=== PATIENT | male | born 1990 | race Two or more races ===

== ENCOUNTER 2017-07-05 19:44 | Emergency (ER) | payer MEDICAID, OTHER ==
[~2017-07-05] VITALS: Ht 185550.7 cm; Wt 85.0 kg
[~2017-07-05 19:44] MED LIST: NO HOME MEDS
[2017-07-05] MEDS ORDERED: normal saline 1000ML IV soln IVB ONE (20:15)
[2017-07-05 20:50] LABS: BASOPHILS % (AUTO) 0.3 % (0-1); EOSINOPHILS # (AUTO) 0.2 X10'3 (0-0.9); EOSINOPHILS % (AUTO) 1.7 % (0-6); HEMOGLOBIN 16.3 g/dl (14.0-17.9); LYMPHOCYTES # (AUTO) 3.1 X10'3 (1.1-4.8); LYMPHOCYTES % (AUTO) 29.8 % (21-51); MEAN CORPUSCULAR HEMOGLOBIN 31.9 PG (27.0-31.0); MEAN CORPUSCULAR HGB CONC 33.9 % (33.0-36.5); MEAN CORPUSCULAR VOLUME 94.1 FL (78-98); MEAN PLATELET VOLUME 7.2 FL (7.4-10.4); MONOCYTES # (AUTO) 0.7 X10'3 (0-0.9); MONOCYTES % (AUTO) 6.6 % (2-12); NEUTROPHILS # (AUTO) 6.5 X10'3 (1.8-7.7); NEUTROPHILS % (AUTO) 61.6 % (42-75); PLATELET COUNT 322 X10'3 (140-440); RED CELL DISTRIBUTION WIDTH 12.6 % (11.5-14.5); WHITE BLOOD COUNT 10.5 X10'3 (4.5-11.0)
[2017-07-05 21:06] LABS: ALANINE AMINOTRANSFERASE 42 U/L (12-78); ALBUMIN 4.8 G/DL (3.4-5.0); ALBUMIN/GLOBULIN RATIO 1.3 (1.1-1.5); ALKALINE PHOSPHATASE 53 IU/L (46-116); ANION GAP 15 (8-16); ASPARTATE AMINO TRANSFERASE 33 U/L (10-37); BILIRUBIN,TOTAL 0.6 MG/DL (0.1-1.0); BLOOD UREA NITROGEN 9 MG/DL (7-18); BUN/CREATININE RATIO 6.6 (5.4-32.0); CALCIUM 9.1 MG/DL (8.5-10.1); CHLORIDE 106 MMOL/L (99-107); CREATININE 1.36 MG/DL (0.60-1.10); GLUCOSE 104 MG/DL (70-104); POTASSIUM 3.4 MMOL/L (3.5-5.1); SODIUM 146 MMOL/L (135-145); TOTAL CARBON DIOXIDE 25.4 MMOL/L (24-32); TOTAL PROTEIN 8.5 G/DL (6.4-8.2); eGFR 62 ML/MIN
[2017-07-05 21:14] LABS: ETHANOL 0.252 GM/DL (0.0-0.010)
[2017-07-05 21:38] LABS: CLARITY,URINE SLIGHTLY CLOUDY (Clear); COLOR,URINE YELLOW (Yellow); GLUCOSE, URINE NEGATIVE (Neg); KETONES,URINE NEGATIVE (Neg); LEUKOCYTE ESTERASE ,URINE NEGATIVE (Neg); NITRITES, URINE NEGATIVE (Neg); OCCULT BLOOD,URINE NEGATIVE (Neg); PROTEIN,URINE 30 mg/dl (Neg); UROBILINOGEN,URINE 0.2 E.U/dL (0.2-1.0)
[2017-07-05 21:41] LABS: URINE AMPHETAMINE SCREEN NEGATIVE (Neg); URINE BARBITUATE SCREEN NEGATIVE (Neg); URINE BENZODIAZEPINES SCREEN NEGATIVE (Neg); URINE CANNABINOID SCREEN POSITIVE (Neg); URINE COCAINE SCREEN POSITIVE (Neg); URINE METHADONE SCREEN NEGATIVE (Neg); URINE OPIATE SCREEN NEGATIVE (Neg); URINE PHENCYCLIDINE SCREEN NEGATIVE (Neg)
[2017-07-05 21:54] LABS: UA COLLECTION TYPE CLN CATCH MIDSTREAM
[2017-07-05 21:56] LABS: BACTERIA,URINE FEW /HPF (Neg); MUCUS STRANDS FEW /LPF (Neg); RBC,URINE 0-2 /HPF (0-2); SQUAMOUS EPITHELIAL CELL,UR FEW /LPF (FEW); WBC,URINE 0-4 /HPF (0-4)
[2017-07-05] MEDS ORDERED: LORazepam 2 mg/ml vial IM ONE (22:10)
[2017-07-05] MEDS ORDERED: diphenhydrAMINE 50 mg/ml inj IM ONE (22:40)
[2017-07-05] MEDS ORDERED: haloperidol lactate 5mg/ml inj IM ONE (22:40)
[2017-07-06] MEDS ORDERED: nicotine 21mg patch - 24 hr TD ONE (16:05)
[2017-07-06] MEDS ORDERED: LORazepam 1 MG tablet PO STA (16:18)
[2017-07-06] MEDS ORDERED: diphenhydrAMINE 25mg capsule PO ONE (16:20)
[2017-07-06] MEDS ORDERED: OLANZapine 2.5MG tablet PO PRN (18:00)
[2017-07-06] MEDS ORDERED: traZODone 50mg tablet PO PRN (18:00)
[2017-07-06] MEDS: OLANZapine 5mg rapidly disint. tablet PO SCH (20:36)
[2017-07-07] MEDS: multivitamins, therapeutics tablet PO SCH (08:12)
[2017-07-07] MEDS: thiamine 100mg tablet PO SCH (08:12)
[2017-07-07] MEDS: folic acid 1mg tablet PO SCH (08:12)
[2017-07-07] MEDS: nicotine 21mg patch - 24 hr TD SCH (12:02)
[2017-07-07] MEDS: LORazepam 1 MG tablet PO PRN ×2 (16:59→23:25)
[2017-07-07] MEDS: OLANZapine 5mg rapidly disint. tablet PO SCH (20:32)
[2017-07-07] MEDS: traZODone 50mg tablet PO PRN (20:32)
[2017-07-08] MEDS: nicotine 21mg patch - 24 hr TD SCH (08:07)
[2017-07-08] MEDS: multivitamins, therapeutics tablet PO SCH (08:07)
[2017-07-08] MEDS: thiamine 100mg tablet PO SCH (08:07)
[2017-07-08] MEDS: folic acid 1mg tablet PO SCH (08:07)
[2017-07-08] MEDS: LORazepam 1 MG tablet PO PRN (20:00)
[2017-07-08] MEDS: OLANZapine 5mg rapidly disint. tablet PO SCH (20:00)
[2017-07-08] MEDS: traZODone 50mg tablet PO PRN (20:00)
[2017-07-09 05:51] VITALS: BP 97/61
[2017-07-09] MEDS: folic acid 1mg tablet PO SCH (08:52)
[2017-07-09] MEDS: nicotine 21mg patch - 24 hr TD SCH (08:52)
[2017-07-09] MEDS: thiamine 100mg tablet PO SCH (08:52)
[2017-07-09] MEDS: multivitamins, therapeutics tablet PO SCH (08:52)
[2017-07-09] MEDS ORDERED: OLAN10TA5 PO (11:45)
[2017-07-09] MEDS ORDERED: TRAZ-143 PO (11:45)
== END 2017-07-09 12:12 | disposition home or self-care (01) ==
LOC: ER 19:45
DX: F31.9 Bipolar disorder, unspecified (principal); R45.851 Suicidal ideations; F10.129 Alcohol abuse with intoxication, unspecified; F12.10 Cannabis abuse, uncomplicated; F14.10 Cocaine abuse, uncomplicated; Z98.890 Other specified postprocedural states; Y90.0 Blood alcohol level of less than 20 mg/100 ml
CPT/HCPCS: 36415; 80053; 80305; 80320; 81001; 84443; 85025; 96372; 99285; J1200; J1630; J2060; J7030; Q0163

== ENCOUNTER 2018-06-28 09:08 | Inpatient (IN) | payer MEDICAID ==
[~2018-06-28] VITALS: Ht 180.3 cm; Wt 90.9 kg
[2018-06-28] MEDS ORDERED: hydrOXYzine 25 MG tablet PO PRN (11:10)
[2018-06-28] MEDS ORDERED: tuberculin, purif. prot. deriv. 5 units/0.1ml ID ONE (11:10)
[2018-06-28] MEDS ORDERED: acetaminophen 325mg tablet PO PRN ×2 (11:10)
[2018-06-28] MEDS ORDERED: loperamide 2mg capsule PO PRN (11:10)
[2018-06-28] MEDS ORDERED: magnesium hydroxide 30ml (MOM) UD suspension PO PRN (11:10)
[2018-06-28] MEDS ORDERED: mag hydrox/Alum hydrox/simeth 30ml oral suspension PO PRN (11:10)
[2018-06-28] MEDS ORDERED: LORazepam 1 MG tablet PO PRN (11:10)
--- NOTE | 2018-06-28 11:16 | NUR ---
Admission Note: Pt admitted to [facility] at 1044. Pt came up from overflow ER. Pt is on a 5150 which will on 07/01/18 at 1044 for DTS as pt attempted suicide by hanging from a power cord. Pt was unresponsive when found by brother and CPR was performed. Pt remains depressed with S.I. at this time.
[2018-06-28 11:19] VITALS: BP 121/74
[2018-06-28] MEDS: nicotine 21mg patch - 24 hr TD SCH (11:29)
--- NOTE | 2018-06-28 14:46 | NUR ---
CHECK PPD Addendum: 06/28/18 at 1446 by Janae Garcia RN Amended: Links added.
[2018-06-28] MEDS: NICOTINE POLACRILEX 2 MG LOZENGE MM PRN (17:08)
[2018-06-28] MEDS: lurasidone 20mg tablet PO SCH (17:55)
[2018-06-28 19:00] VITALS: BP 120/78
[2018-06-28] MEDS ORDERED: quetiapine 100mg tablet PO SCH (21:00)
--- NOTE | 2018-06-29 02:20 | NUR ---
Nursing Progress Note: Legal hold:5150 Client on voluntary/involuntary status for GD/DTS/DTO: DTS Report received from nurse Kwan with use of SBAR Why are they here: Pt was brought to ER after a suicide attempt by hanging himself with a power chord in a closet. Pt was unresponsive when found by brother and CPR was performed. Pt's blood alcohol upon entry into the ER was 0.195. Pt has had previous suicide attempts, his brother committed suicide in May of 2017. He had been seeing a therapist for this, but the therapist moved 6 months ago, and he has not been to anyone else since. He reports he also stopped taking his medications 6 months ago because he was feeling "good." Assessment What has happened this shift: Pt played cards with his brothers who came to visit. Pt was observed laughing with them and talking. After they left pt sat in rec room alone watching TV. Pt is cooperative with assessment and makes direct eye contact. When asked if he is still feeling suicidal he replies, "No not at all, I'm feeling a lot better." Pt then asks when he will be able to leave "although everyone here is very nice and welcoming, I want to get back on with life." Animal Rehabilitator asks how patient feels about everything that has happened in the past 2 days, he responds, "well I feel stupid, I can't drink hard liquor anymore because I make bad decisions." "Me and my girl got into it and we aren't talking right now, and I just got overwhelmed." Pt states when he gets out he is thinking about checking into a rehab of some sort because he feels alcohol is becoming an issue for him. 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 Pt states he has 4 children aging from 8 months old to 7. He smiles when he talks about his children. Pt appears anxious at times, shifting in his seat. Animal Rehabilitator educates pt on available medications, he verbalizes understanding but just wants to take his sleeping pill. Pt states he had been on medications but stopped taking them 6 months ago because everything was going well for him and he felt that he no longer needed them. Animal Rehabilitator spoke to him about the importance of continuing medications, and not abruptly stopping them. 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, no group Were meds taken: yes Any med S/E: none reported, none observed Mental Status Exam Appearance: clean, well groomed Eye contact: occasional Behavior: friendly, engages in conversation Speech: normal rate and rhythm Mood: regretful Affect: minimizing, depressed Thought process: linear, blocking at times Thought Content: wants to leave Cognition: intact Insight: poor Judgment: poor Interventions PRN's used: none Therapeutic interventions: 1:1 assessment, allowed pt to express thoughts and feelings, medication education, therapeutic listening, Q15 minute safety checks Restraints/seclusion/emergency medication: none Justification of Continued Inpatient Treatment: Pt had a recent high lethality suicide attempt, has not been to therapy in 6 months, and needs crisis intervention and medication stabilization. If he is released, he is at high risk for suicide.
[2018-06-29 08:00] VITALS: BP 114/80
[2018-06-29] MEDS: nicotine 21mg patch - 24 hr TD SCH (08:24)
[2018-06-29] MEDS: NICOTINE POLACRILEX 2 MG LOZENGE MM PRN ×4 (08:26→19:26)
[2018-06-29 11:23] LABS: CHOL/HDL RATIO 3.4 (0.00-4.99); CHOLESTEROL 188 MG/DL (0-200); HDL CHOLESTEROL 55 MG/DL (35-60); LDL CHOLESTEROL 119 MG/DL (50-100); TRIGLYCERIDES 195 MG/DL (20-135)
[2018-06-29] MEDS: cloNIDine 0.1 mg tablet PO PRN (14:20)
[2018-06-29 14:35] LABS: ALBUMIN 4.1 G/DL (3.4-5.0); ANION GAP 7 (8-16); BLOOD UREA NITROGEN 12 MG/DL (7-18); BUN/CREATININE RATIO 10.6 (5.4-32.0); CALCIUM 9.4 MG/DL (8.5-10.1); CHLORIDE 100 MMOL/L (99-107); CREATININE 1.13 MG/DL (0.60-1.10); GLUCOSE 83 MG/DL (70-104); POTASSIUM 4.4 MMOL/L (3.5-5.1); SODIUM 136 MMOL/L (135-145); TOTAL CARBON DIOXIDE 28.9 MMOL/L (24-32); eGFR 77 ML/MIN
--- NOTE | 2018-06-29 17:11 | NUR ---
Nursing Progress Note: Legal hold:5150 Client on voluntary/involuntary status for GD/DTS/DTO: DTS Report received from nurse Kwan with use of SBAR Why are they here: Pt was brought to ER after a suicide attempt by hanging himself with a power chord in a closet. Pt was unresponsive when found by brother and CPR was performed. Pt's blood alcohol upon entry into the ER was 0.195. Pt has had previous suicide attempts, his brother committed suicide in May of 2017. He had been seeing a therapist for this, but the therapist moved 6 months ago, and he has not been to anyone else since. He reports he also stopped taking his medications 6 months ago because he was feeling "good." Assessment What has happened this shift: Patient is observed up in the rec room at shift change watching movies with another patient. He states that he slept well last night. He reports feeling like he would like to be able to go outside, have coffee and a smoke. He states that he is not feeling suicidal and would like to be able to go home. Patient denies anxiety and needing medication but does request nicotine lozenge. Patient spends most of the day in rec room. During conversation later in the day, patient appears anxious, is observed tapping his leg, he requests clonidine. Patient does engage with others and joins afternoon group. S/I, H/I: patient denies A/VH: denies Sleep: 7.25 hrs NOC ADL's: independent Group attendance: yes Were meds taken: yes Any med S/E: none reported, none observed Mental Status Exam Appearance: clean, well groomed Eye contact: direct Behavior: cooperative, friendly, anxious Speech: normal rate and rhythm Mood: anxious Affect: congruent to mood with brightening at times throughout the day Thought process: linear Thought Content: leaving Cognition: intact Insight: poor Judgment: poor Interventions PRN's used: nicotine lozenge x3, clonidine Therapeutic interventions: 1:1 therapeutic assessment, maintained safe therapeutic milieu, encouraged independent ADLs, provided active listening with positive feedback, provided medication education as needed, monitored for change in behavior and needed intervention. Q 15 min safety checks. Restraints/seclusion/emergency medication: none Justification of Continued Inpatient Treatment: Pt had a recent high lethality suicide attempt, has not been to therapy in 6 months, if he is released, he is at high risk for suicide. Continued therapeutic support and medication management needed to provide stabilization, and prevent decompensation decreasing risk to patient for readmittance to in-patient unit.
[2018-06-29] MEDS: lurasidone 20mg tablet PO SCH (17:58)
[2018-06-29 19:00] VITALS: BP 120/74
[2018-06-29] MEDS: quetiapine 100mg tablet PO SCH (21:18)
--- NOTE | 2018-06-30 01:17 | NUR ---
Nursing Progress Note: Legal hold:5150 Client on voluntary/involuntary status for GD/DTS/DTO: DTS Report received from nurse Kwna with use of SBAR Why are they here: Pt was brought to ER after a suicide attempt by hanging himself with a power chord in a closet. Pt was unresponsive when found by brother and CPR was performed. Pt's blood alcohol upon entry into the ER was 0.195. Pt has had previous suicide attempts, his brother committed suicide in May of 2017. He had been seeing a therapist for this, but the therapist moved 6 months ago, and he has not been to anyone else since. He reports he also stopped taking his medications 6 months ago because he was feeling "good." Assessment What has happened this shift: Pt's mother and brother came to visit. Pt and mother had a meeting with Dr. Dean. Pt tells fha underwriter he was hopeful about possibly leaving tomorrow, but after talking to Dr. Dean and his mom, Sunday would be the earliest. "I am millie bummed because I just want to get on with my life but I understand why I have to wait." "I can deal with being here, everyone is really nice." When asked about his mood, and if he is feeling suicidal or depressed at all he responds, " No I am not honestly, we talked about me going to a recovery house for alcohol after this and I think I should. 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 unloader, no group Were meds taken: yes Any med S/E: none reported, none observed Mental Status Exam Appearance: clean, well groomed Eye contact: occasional Behavior: friendly, engages in conversation Speech: normal rate and rhythm Mood: regretful Affect: minimizing, depressed Thought process: linear Thought Content: wants to leave Cognition: intact Insight: poor Judgment: poor Interventions PRN's used: none Therapeutic interventions: 1:1 assessment, allowed pt to express thoughts and feelings, medication education, therapeutic listening, Q15 minute safety checks Restraints/seclusion/emergency medication: none Justification of Continued Inpatient Treatment: Pt had a recent high lethality suicide attempt, has not been to therapy in 6 months, and needs crisis intervention and medication stabilization. If he is released, he is at high risk for suicide.
[2018-06-30] MEDS: nicotine 21mg patch - 24 hr TD SCH (07:58)
[2018-06-30 08:00] VITALS: BP 113/59
[2018-06-30] MEDS: NICOTINE POLACRILEX 2 MG LOZENGE MM PRN ×2 (11:04→19:13)
--- NOTE | 2018-06-30 15:22 | NUR ---
Nursing Progress Note: Legal hold:5150 Client on voluntary/involuntary status for GD/DTS/DTO: DTS Report received from QUIQUE Braun with use of SBAR Why are they here: Pt was brought to ER after a suicide attempt by hanging himself with a power chord in a closet. Pt was unresponsive when found by brother and CPR was performed. Pt's blood alcohol upon entry into the ER was 0.195. Pt has had previous suicide attempts, his brother committed suicide in May of 2017. He had been seeing a therapist for this, but the therapist moved 6 months ago, and he has not been to anyone else since. He reports he also stopped taking his medications 6 months ago because he was feeling "good." Assessment What has happened this shift: Patient is observed sleeping at change of shift. He is awoken for ultra sound of his abdomen. After, he joins another for a game of cards in the group room. His affect is bright and he states that he is doing better. He reports sleeping well last night. Patient has visit from family and states that it went well but appears to be anxious, he requests a nicotine lozenge but wants nothing else. He is focused on returning home and moving on with his life. He states that he has a plan to enter into a rehab. He would like to make sure he pays some of the bills for housing and such before he goes. He is kind and pleasant to others throughout the day. S/I, H/I: patient denies A/VH: none reported or observed Sleep: 7.75 ADL's: independent Group attendance: yes Were meds taken: yes Any med S/E: none reported, none observed Mental Status Exam Appearance: clean, well groomed, shaved Eye contact: direct Behavior: friendly and cooperative Speech: normal rate and rhythm Mood: good Affect: congruent to mood Thought process: linear Thought Content: focused on leaving and wellness Cognition: intact Insight: poor Judgment: poor Interventions PRN's used: nicotine lozenge Therapeutic interventions: 1:1 assessment, allowed pt to express thoughts and feelings, medication education, therapeutic listening, Q15 minute safety checks Restraints/seclusion/emergency medication: none Justification of Continued Inpatient Treatment: Pt had a recent high lethality suicide attempt, has not been to therapy in 6 months, if he is released, he is at high risk for suicide. Continued therapeutic support and medication management needed to provide stabilization, and prevent decompensation decreasing risk to patient for readmittance to in-patient unit.
[2018-06-30] MEDS: lurasidone 20mg tablet PO SCH (17:56)
[2018-06-30 19:27] VITALS: BP 134/80
[2018-06-30] MEDS ORDERED: QUET100T33 PO (20:41)
[2018-06-30] MEDS ORDERED: LURA20TA PO (20:41)
[2018-06-30] MEDS ORDERED: CLON0.1T20 PO (20:41)
[2018-06-30] MEDS: quetiapine 100mg tablet PO SCH (22:04)
--- NOTE | 2018-07-01 01:41 | NUR ---
Nursing Progress Note: Legal hold:5150 Client on voluntary/involuntary status for GD/DTS/DTO: DTS Report received from nurse Blanco with use of SBAR Why are they here: Pt was brought to ER after a suicide attempt by hanging himself with a power chord in a closet. Pt was unresponsive when found by brother and CPR was performed. Pt's blood alcohol upon entry into the ER was 0.195. Pt has had previous suicide attempts, his brother committed suicide in May of 2017. He had been seeing a therapist for this, but the therapist moved 6 months ago, and he has not been to anyone else since. He reports he also stopped taking his medications 6 months ago because he was feeling "good." Assessment What has happened this shift: Pt is in an upbeat mood this shift and tells writer producer that he will probably be going home tomorrow. He tells writer producer that "as great as this place is, I am ready to go." He makes good eye contact with writer producer and talks with other patients while watching TV in the rec room. He denies feeling suicidal or depressed. S/I, H/I: patient denies A/VH: denies Sleep: see sleep assessment notation ADL's: independent Group attendance: shift commander, no group Were meds taken: yes Any med S/E: none reported, none observed Mental Status Exam Appearance: clean, well groomed Eye contact: direct Behavior: friendly Speech: normal rate and rhythm Mood: upbeat Affect: congruent with mood Thought process: linear Thought Content: excited to leave Cognition: intact Insight: improving Judgment: fair Interventions PRN's used: none Therapeutic interventions: 1:1 assessment, allowed pt to express thoughts and feelings, medication education, therapeutic listening, Q15 minute safety checks Restraints/seclusion/emergency medication: none Justification of Continued Inpatient Treatment: Pt had a recent high lethality suicide attempt, has not been to therapy in 6 months, and needs crisis intervention and medication stabilization. If he is released, he is at high risk for suicide.
[2018-07-01] MEDS: nicotine 21mg patch - 24 hr TD SCH (07:53)
[2018-07-01 08:00] VITALS: BP 108/73
[2018-07-01] MEDS: cloNIDine 0.1 mg tablet PO PRN (10:31)
--- NOTE | 2018-07-01 11:00 | NUR ---
Discharge Note Patient discharged to home, accompanied by three family members. All personal belongings inventoried in front of patient and form was signed without event. Patient was given all follow-up information including prescriptions. All appointments were reviewed with patient per his packet. Dr. Waters spoke with patient and his family before he was discharged to ensure patient's safety was at the forefront immediately following his recent suicide attempt by hanging. Patient denies suicidal ideation or intent at this time though he presents as fragile due to last month being the anniversary of his younger brother's suicide by gun. Patient states "these are my hard months." Patient uses tobacco and states he will continue to use tobacco after discharge.
== END 2018-07-01 11:04 | disposition home or self-care (01) | DRG 753 ==
LOC: ADULT MH 11:06
PROVIDERS: ADMIT Psychiatry & Neurology Psychiatry; ATTEND Psychiatry & Neurology Psychiatry
DX: F31.81 Bipolar II disorder (principal); R45.851 Suicidal ideations; F10.20 Alcohol dependence, uncomplicated; F43.12 Post-traumatic stress disorder, chronic; Z81.8 Family history of other mental and behavioral disorders
CPT/HCPCS: 36415; 76700; 80048; 80061; 80337; 83036; 87070; Q0177